=== PATIENT | female | born 1960 | race Hispanic/Latino ===

== ENCOUNTER 2017-01-03 13:49 | Emergency (ER) | payer MEDICAID ==
[~2017-01-03 13:49] MED LIST: Iopamidol 370 76% 100 ML VIAL ONE
[2017-01-03] MEDS ORDERED: Sodium Chloride 0.9% 1,000 ML ONE ×2 (14:08→16:06)
--- NOTE | 2017-01-03 14:35 | RAD ---
SINGLE VIEW OF THE CHEST: History: Chest pain. Recent chemotherapy for right breast cancer. FINDINGS: Single view of the chest shows a normal sized cardiomediastinal silhouette. There is no evidence of consolidation, mass, or pleural effusion. The bones are unremarkable. IMPRESSION: No evidence of acute cardiopulmonary disease. POS: [facility]
[2017-01-03 14:36] LABS: ALT (SGPT) 42 U/L (8-55); AST (SGOT) 44 U/L (5-34); Albumin 3.8 g/dL (3.5-5.0); Alkaline Phosphatase 112 U/L (40-150); Anion Gap 19 mmol/L (10-20); BUN (Urea Nitrogen) 16 mg/dL (9.8-20.1); Bilirubin, Total 0.9 mg/dL (0.2-1.2); CK (CPK) 90 U/L (29-168); Calc. Creatinine Clearance 0 mL/min (70-130); Calcium 9.2 mg/dL (7.8-10.44); Carbon Dioxide 22 mmol/L (22-29); Chloride 94 mmol/L (98-107); Estimated GFR-MDRD 75; Globulin 3.2 g/dL (2.4-3.5); Glucose 337 mg/dL (70-105); Lipase 35 U/L (8-78); Potassium 3.5 mmol/L (3.5-5.1); Sodium 131 mmol/L (136-145)
[2017-01-03 14:42] LABS: Band 1 % (5-11); Hemoglobin 13.8 g/dL (12.0-16.0); Lymphocytes 56 % (21-51); MDiff Complete? YES; Mean Corpuscular HGB CONC 33.9 g/dL (32.0-36.0); Mean Corpuscular Hemoglobin 30.8 pg (27.0-31.0); Mean Corpuscular Volume 90.6 fl (81.0-99.0); Mean Platelet Volume 10.7 fL (7.4-10.4); Monocytes 1 % (0-10); Neutrophil 42 % (42-75); PLT Morphology Comment Appears Adequate; Platelet Count 169 thou/uL (130-400); RBC Morphology Normal; White Blood Cell (WBC) Count 3.1 thou/uL (4.8-10.8)
[2017-01-03 14:50] LABS: CKMB 3.4 ng/mL (0-6.6); Troponin I 0.013 ng/mL (< 0.028)
[2017-01-03 15:08] LABS: Bilirubin Negative (Negative); Blood, Urine Trace (Negative); Clarity Clear (Clear); Glucose, Urine (Dipstick) >=1000 mg/dL (Negative); Leukocyte Trace (Negative); Nitrite Negative (Negative); Protein, Urine (Dipstick) Negative (Neg-Trace); Specific Gravity, Urine 1.015 (1.005-1.030); Urobilinogen 0.2 mg/dL (0.2-1.0); pH, Urine 5.5 (5.0-9.0)
[2017-01-03 15:14] LABS: Bacteria/HPF Rare-Few HPF (None Seen); RBC/HPF 0-3 HPF (0-3); Squamous Epithelial 0-3 HPF (0-3)
--- NOTE | 2017-01-03 15:57 | CT ---
CT ARTERIOGRAM CHEST WITH IV CONTRAST AND 3D MIP IMAGING 01/03/17 HISTORY: Chest pain. FINDINGS: There is good contrast opacification of the central pulmonary arteries. No filling defects are evide nt. Bovine origin of the great vessels from the aortic arch is apparent. Fluid is noted within the mid esophagus. The gallbladder is surgically absent. Minimal patchy atelectasis is present at the right posterior medial lung base. IMPRESSION: 1. No CT evidence of pulmonary embolus. 2. Small focus of patchy pneumonitis at the right posterior medial lung base. Clinical correlat ion regarding other signs of symptoms of right lower lobe pneumonitis is required. POS: [facility]
== END 2017-01-03 16:32 | disposition short-term general hospital (02) ==
LOC: NAV ERS 13:49
DX: J18.9 Pneumonia, unspecified organism (principal); D70.9 Neutropenia, unspecified; A41.9 Sepsis, unspecified organism; E11.9 Type 2 diabetes mellitus without complications; I10 Essential (primary) hypertension; Z79.899 Other long term (current) drug therapy
CPT/HCPCS: 36415; 71010; 71275; 80053; 81003; 81015; 82550; 82553; 83605; 83690; 84484; 85025; 85379; 87040; 93005; 96361; 96365; J1956; J7050